=== PATIENT | female | born 2000 | race American Indian/Alaskan Native ===

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

== ENCOUNTER 2019-06-07 17:13 | Inpatient (IN) | payer BC ==
[2019-06-07] MEDS ORDERED: Sodium Chloride 0.9% 10 ML SDV IV PRN (17:18)
[2019-06-07] MEDS ORDERED: Lidocaine 1% 50 ML MDV INJECT PRN (17:18)
[2019-06-07] MEDS ORDERED: Sodium Chloride 0.9% 2.5 ML Syringe FLUSH PRN (17:18)
[2019-06-07] MEDS ORDERED: Methylergonovine 0.2 MG/1 ML Amp IM PRN (17:18)
[2019-06-07] MEDS ORDERED: Misoprostol 200 MCG Tab PO PRN (17:18)
[2019-06-07] MEDS ORDERED: Ondansetron 4 MG/2 ML SDV IVPUSH PRN (17:18)
[2019-06-07] MEDS ORDERED: Carboprost Tromethamine 250 MCG/1 ML Amp IM PRN (17:18)
[2019-06-07] MEDS ORDERED: Nalbuphine 10 MG/1 ML Vial IVPUSH PRN (17:18)
[2019-06-07] MEDS ORDERED: Terbutaline 1 MG/ML SDV SUBCUT PRN (17:18)
[2019-06-07] MEDS ORDERED: Tranexamic Acid 1,000 MG in Sodium Chloride 0.9% 100 ML IV PRN (17:18)
[2019-06-07] MEDS ORDERED: Butorphanol 1 MG/ML SDV IVPUSH PRN (17:18)
[2019-06-07] MEDS ORDERED: Sodium Chloride 0.9% 10 ML Syringe FLUSH PRN (17:18)
[2019-06-07] MEDS ORDERED: Misoprostol 25 MCG (1/4 of 100 MCG) Tab VAG PRN ×3 (17:18→20:44)
[2019-06-07] MEDS ORDERED: Water For Irrigation,Sterile 1,000 ML Container IRR PRN (17:18)
[2019-06-07] MEDS ORDERED: Oxytocin/0.9 % Sodium Chloride 30 UNIT/500 ML BAG IV SCH ×2 (17:30)
[2019-06-07] MEDS: Lactated Ringers 1,000 ML IV SCH (18:31)
[2019-06-08] MEDS ORDERED: fentaNYL 100 MCG/2 ML SDV ONE (09:47)
[2019-06-08] MEDS ORDERED: Ropivacaine HCl/PF 100 ML ONE (09:47)
[2019-06-08] MEDS: Lactated Ringers 1,000 ML IV SCH ×3 (10:05→17:42)
--- NOTE | 2019-06-08 10:09 | PCM.PREANE ---
Preanesthetic Assessment - Anesthesia/Transfusion/Family Hx Anesthesia History: Prior Anesthesia Without Reaction Family History of Anesthesia Reaction: No Transfusion History: No Prior Transfusion(s) - Review of Systems General: No Symptoms Pulmonary: No Symptoms Cardiovascular: No Symptoms Gastrointestinal: No Symptoms Neurological: No Symptoms Other: Reports: None - Physical Assessment Height: 1.52 m Weight: 79.379 kg ASA Class: 1 Mental Status: Alert & Oriented x3 Dentition: Reports: Normal Dentition - Lab Values: Laboratory Last Values WBC 10.04 K/uL (4.0-11.0) 06/07/19 17:47 RBC 3.80 M/uL (4.30-5.90) L 06/07/19 17:47 Hgb 12.2 g/dL (12.0-16.0) 06/07/19 17:47 Hct 34.7 % (36.0-46.0) L 06/07/19 17:47 MCV 91.3 fL (80.0-98.0) 06/07/19 17:47 MCH 32.1 pg (27.0-32.0) H 06/07/19 17:47 MCHC 35.2 g/dL (31.0-37.0) 06/07/19 17:47 RDW Std Deviation 42.1 fl (28.0-62.0) 06/07/19 17:47 RDW Coeff of Migue 13 % (11.0-15.0) 06/07/19 17:47 Plt Count 157 K/uL (150-400) 06/07/19 17:47 MPV 10.80 fL (7.40-12.00) 06/07/19 17:47 Nucleated RBC % 0.0 /100WBC 06/07/19 17:47 Nucleated RBCs # 0 K/uL 06/07/19 17:47 Blood Type O POSITIVE 06/07/19 17:47 Antibody Screen NEGATIVE 06/07/19 17:47 - Allergies Allergies/Adverse Reactions: Allergies Allergy/AdvReac Type Severity Reaction Status Date / Time No Known Allergies Allergy Verified 06/07/19 17:17 - Acknowledgements Anesthesia Type Planned: Epidural Pt an Appropriate Candidate for the Planned Anesthesia: Yes Alternatives and Risks of Anesthesia Discussed w Pt/Guardian: Yes Pt/Guardian Understands and Agrees with Anesthesia Plan: Yes PreAnesthesia Questionnaire - Past Health History Medical/Surgical History: Denies Medical/Surgical History HEENT History: Reports: None Cardiovascular History: Reports: Arrhythmia Respiratory History: Reports: None Gastrointestinal History: Reports: None Genitourinary History: Reports: None 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 Musculoskeletal History: Reports: None Neurological History: Reports: None Psychiatric History: Reports: None Endocrine/Metabolic History: Reports: None Hematologic History: Reports: None Immunologic History: Reports: None Oncologic (Cancer) History: Reports: None Dermatologic History: Reports: None - Infectious Disease History Infectious Disease History: Reports: None - Past Surgical History Head Surgeries/Procedures: Reports: None HEENT Surgical History: Reports: None Cardiovascular Surgical History: Reports: None Respiratory Surgical History: Reports: None GI Surgical History: Reports: None Female Surgical History: Reports: None Endocrine Surgical History: Reports: None Neurological Surgical History: Reports: None Musculoskeletal Surgical History: Reports: Other (See Below) Other Musculoskeletal Surgeries/Procedures:: knee surgery Oncologic Surgical History: Reports: None Dermatological Surgical History: Reports: None - SUBSTANCE USE Smoking Status *Q: Never Smoker Second Hand Smoke Exposure: No Recreational Drug Use History: No - HOME MEDS Home Medications: Home Meds . [No Known Home Meds] 05/17/17 [History] - CURRENT (IN HOUSE) MEDS Current Meds: Current Medications Butorphanol Tartrate (Stadol) 1 mg IVPUSH Q1H PRN PRN Reason: Pain Carboprost Tromethamine (Hemabate Ds) 250 mcg IM ASDIRECTED PRN PRN Reason: Post Hemorrhage Lactated Ringer's (Ringers, Lactated) 1,000 mls @ 150 mls/hr IV ASDIRECTED NURA Last Admin: 06/08/19 10:05 Dose: 999 mls/hr Oxytocin/Sodium Chloride (Oxytocin 30 Unit/500 Ml-Ns) 30 unit in 500 mls @ 500 mls/hr IV TITRATE NURA Oxytocin/Sodium Chloride (Oxytocin 30 Unit/500 Ml-Ns) 30 unit in 500 mls @ 2 mls/hr IV TITRATE NURA; Protocol Last Titration: 06/08/19 08:35 Dose: 10 munits/min, 10 mls/hr Tranexamic Acid 1,000 mg/ (Sodium Chloride) 110 mls @ 660 mls/hr IV ONETIME PRN PRN Reason: Bleeding Lidocaine HCl (Xylocaine 1%) 50 ml INJECT ONETIME PRN PRN Reason: Laceration repair Methylergonovine Maleate (Methergine) 0.2 mg IM ASDIRECTED PRN PRN Reason: Post Hemorrhage Misoprostol (Cytotec) 200 mcg PO ONETIME PRN PRN Reason: Post Hemorrhage Misoprostol (Cytotec) 25 mcg VAG ONETIME PRN PRN Reason: Cervical Ripening Last Admin: 06/07/19 18:16 Dose: 25 mcg Misoprostol (Cytotec) 25 mcg VAG Q4H PRN PRN Reason: Cervical Ripening Nalbuphine HCl (Nubain) 10 mg IVPUSH Q1H PRN PRN Reason: Pain (severe 7-10) Ondansetron HCl (Zofran) 4 mg IVPUSH Q4H PRN PRN Reason: Nausea/Vomiting Sodium Chloride (Saline Flush) 10 ml FLUSH ASDIRECTED PRN PRN Reason: Keep Vein Open Sodium Chloride (Saline Flush) 2.5 ml FLUSH ASDIRECTED PRN PRN Reason: Keep Vein Open Sodium Chloride (Normal Saline) 10 ml IV ASDIRECTED PRN PRN Reason: IV Use Sterile Water (Sterile Water For Irrigation) 1,000 ml IRR ASDIRECTED PRN PRN Reason: delivery Terbutaline Sulfate (Brethine) 0.25 mg SUBCUT ASDIRECTED PRN PRN Reason: Tacysystole Discontinued Medications Fentanyl (Sublimaze) Confirm Administered Dose 100 mcg .ROUTE .STK-MED ONE Stop: 06/08/19 09:48 Ropivacaine (Naropin 0.2%) Confirm Administered Dose 100 mls @ as directed .ROUTE .STK-MED ONE Stop: 06/08/19 09:48 Misoprostol (Cytotec) 25 mcg VAG Q6H PRN PRN Reason: Cervical Ripening
--- NOTE | 2019-06-08 10:13 | PCM.PRNOTE ---
- Free Text/Narrative Note: Anes Note Patient requests epidural fpr L&D. Sitting position. Level L3-L4 midline approach. Sterile technique. Chloraprep scrub to lumbar area. Sterile fenestrated drape applied. Epidural space easily achieved single attempt using CHUCK technique. CHUCK at 4 cm. Cath threaded 5 cm with ease. Secured at 9 cm at skin using sterile clear adhesive dressing. 1000 test 3 cc 1.5% lido with epi negative. 1003 load 10 cc 0.2% ropivicaine with 1 mcg cc fentanyl in slow divided doses. 1007 Pump started same solution at 8 cc hr with 6 cc q 20 min prn bolus. Kaylah well. Time with patient [id number] Turner Francis SEED CLEANING MANAGER
[2019-06-08] MEDS ORDERED: Acetaminophen 500 MG Tab PO ONE (15:56)
[2019-06-08] MEDS ORDERED: ceFAZolin 1 GM in Premix Bag 1 BAG IV ONE (17:08)
[2019-06-08] MEDS ORDERED: Citric Acid/Sodium Citrate Solution 30 ML Cup PO ONE (17:08)
[2019-06-08] MEDS ORDERED: Oxytocin/0.9 % Sodium Chloride 30 UNIT/500 ML BAG IV SCH (17:15)
[2019-06-08] MEDS ORDERED: Octyl 2-Cyanoacrylate 1 Tube ONE (17:37)
[2019-06-08] MEDS ORDERED: Morphine PF 10 MG/10 ML SDV ONE (17:43)
[2019-06-08] MEDS ORDERED: Phenylephrine/Normal Saline 100 MCG/ML 10 ML Syringe ONE (18:10)
[2019-06-08] MEDS ORDERED: Acetaminophen/oxyCODONE 325-5 MG Tab PO PRN ×3 (18:16→18:31)
[2019-06-08] MEDS ORDERED: Nalbuphine 10 MG/1 ML Vial IVPUSH PRN (18:16)
[2019-06-08] MEDS ORDERED: ePHEDrine 50 MG/ML SDV ONE (18:22)
[2019-06-08] MEDS ORDERED: ceFAZolin/Dextrose,Iso-Osmotic 2 GM/50 ML Duplex Bag IV ONE (18:22)
[2019-06-08] MEDS ORDERED: Ondansetron 4 MG/2 ML SDV IVPUSH PRN (18:31)
[2019-06-08] MEDS ORDERED: diphenhydrAMINE 50 MG/ML SDV IVPUSH PRN (18:31)
[2019-06-08] MEDS ORDERED: Lanolin 100% Cream 7 GM Tube TOP PRN (18:31)
[2019-06-08] MEDS ORDERED: Bisacodyl 10 MG Supp RECTAL PRN (18:31)
--- NOTE | 2019-06-08 18:36 | PCM.OPNOTE ---
- General Post-Op/Procedure Note Date of Surgery/Procedure: 06/08/19 Operative Procedure(s): primary low transverse Findings: liveborn male 8/9 weight pending, ROT position. normal pelvis Pre Op Diagnosis: 39 6/7 weeks arrest of descent Post-Op Diagnosis: Same Anesthesia Technique: Epidural Primary Surgeon: Giovana Azevedo Secondary Surgeon: Reinaldo Ness Anesthesia Provider: Jere Fermin Pathology: none Fluid Replacement, Intraop: 1,000 Output, Urine Amount: 110 EBL in mLs: 600 Complications: None Known Condition: Good Free Text/Narrative:: Intake & Output 06/08/19 06/08/19 06/08/19 06:59 14:59 22:59 Output Total 150 Balance -150
[2019-06-08] MEDS ORDERED: Lactated Ringers 1,000 ML IV SCH (18:45)
--- NOTE | 2019-06-08 19:22 | PCM.POSTAN ---
POST ANESTHESIA ASSESSMENT - MENTAL STATUS Mental Status: Alert - VITAL SIGNS Vital Signs: Last Vital Signs Temp 36.8 C 06/08/19 18:46 Pulse 81 06/08/19 19:11 Resp 21 H 06/08/19 19:11 BP 112/71 06/08/19 19:11 Pulse Ox 99 06/08/19 19:11 - RESPIRATORY Respiratory Status: Respiratory Rate WNL - CARDIOVASCULAR CV Status: Pulse Rate WNL - GASTROINTESTINAL GI Status: No Symptoms - POST OP HYDRATION Hydration Status: Adequate & Stable
--- NOTE | 2019-06-08 19:40 | OR ---
SURGEON: Giovana Azevedo M.D. DATE OF PROCEDURE: 06/08/2019 PREOPERATIVE DIAGNOSES: 39 and 6/7th weeks' intrauterine , arrest of descent. POSTOPERATIVE DIAGNOSES: 39 and 6/7th weeks' intrauterine , arrest of descent. PROCEDURE: Primary low-transverse section. ANESTHESIA: Epidural. ESTIMATED BLOOD LOSS: 600 mL. FLUIDS: 1000 mL of crystalloid. URINE OUTPUT: 115 mL. FINDINGS: Liveborn male. score 8 and 9, weighing 3930 g. ROT position. Normal- appearing tubes and ovaries. COMPLICATIONS: None known. DISPOSITION: Stable to Recovery. BRIEF HISTORY: This is a 19-year-old female, G1, P0. She presents at 39 and 6/7th weeks' gestation for induction of labor due to suspected cephalopelvic disproportion and she was offered a primary versus awaiting onset of labor. However, she desires to proceed with induction of labor with attempted trial of labor. She started with cervix 1 cm, 50%, -4 station. She received a dose of Cytotec. By morning, she was 2 cm, 50%, -4 station. Artificial rupture of membranes was performed. IUPC was placed. She progressed to 3 cm by noon. By 4 p.m., she was 4 cm, 80%, but still -4 station. At this point, the patient requested section. I did offer continued labor as there was category 1 heart tones, but she understanding that the head had not descended whatsoever, she does desire to proceed with a primary with risks discussed including bleeding, infection; injury to bowel, bladder, blood vessels or any other organs; risk of thromboembolic event, and risk of anesthesia. Understanding all these risks, she does desire to proceed. DESCRIPTION OF PROCEDURE: With the patient in left tilt position under adequate epidural analgesia, the abdomen was prepped with chlorhexidine and draped in usual fashion for abdominal surgery. SCDs were in place. Funes catheter had been placed and an appropriate time-out was held. She also received 1 g Ancef IV. After documentation of adequate analgesia, the transverse curvilinear incision was made 2 cm cephalad from the pubic symphysis and carried through the subcutaneous tissue to the fascia, which was scored transversely in the midline. The fascial incision was extended laterally using curved Maldonado scissors. Fascia was elevated from the underlying rectus muscle using sharp and blunt dissection. The rectus muscles were in the midline and the peritoneum was grasped with hemostats. The peritoneal cavity was entered using Metzenbaum scissors. A finger was placed into the peritoneal cavity. There was no evidence of any adhesions anteriorly; therefore, the incision was extended using sharp and blunt dissection. The Yovani O retractor was placed. The visceroperitoneum over the lower uterine segment was incised to develop an adequate bladder flap. A transverse curvilinear incision was made over the lower uterine segment and the head was delivered via the uterine incision with fundal pressure. The was in a right occiput transverse position, and the infant was bulb suctioned by nose and mouth and the remainder of the infant's body was delivered without any difficulty. After the cord had ceased to pulsate, it was doubly clamped and cut. The infant was handed to Dr. Monreal the spool carrier in attendance at delivery. The infant was a liveborn male, score 8 and 9, weighing 3930 g. Cord blood was collected for cord ABGs as well as routine cord blood sampling. Pitocin had been initiated after delivery of the infant to assist with uterine contractions. After the placenta was delivered, the uterus was cleaned with a wet laparotomy tape. The uterine incision was closed with a running lock suture of 0 Polysorb followed by an imbricating layer of 0 Polysorb. The posterior cul-de-sac and pericolic gutters were cleaned with a wet laparotomy tape, and the tubes and ovaries were inspected and they appeared normal. The uterine incision was again inspected and was hemostatic. Therefore, the Yovani O retractor was removed, and the incision was again inspected and remained hemostatic. The rectus muscle and peritoneum were loosely approximated in the midline using a running mattress suture of 0 Polysorb. The posterior aspect of the fascia was inspected and areas of bleeding that were noted were cauterized. The fascia was closed with a running suture of 0 Polysorb. Subcutaneous tissue was irrigated. Any areas of bleeding that were noted were cauterized. The skin was closed with a running subcuticular suture of 3-0 Monocryl followed by Dermabond. Final sponge, needle, and instrument counts were reported as correct. There were no noted complications. Mother and baby are in Recovery in good condition. ANÍBAL / GEORGES /[id number]
[2019-06-08] MEDS: Ketorolac 30 MG/ML SDV IVPUSH SCH (21:14)
[2019-06-08] MEDS: Docusate Sodium 100 MG Cap PO SCH (21:15)
[2019-06-09] MEDS: Ketorolac 30 MG/ML SDV IVPUSH SCH ×4 (01:16→20:04)
--- NOTE | 2019-06-09 08:05 | PCM.PNPP ---
- General Info Date of Service: 06/09/19 Functional Status: Reports: Pain Controlled, Tolerating Diet. Denies: Urinating (bunch still in place) - Review of Systems General: Reports: No Symptoms HEENT: Reports: No Symptoms Pulmonary: Reports: No Symptoms Cardiovascular: Reports: No Symptoms Gastrointestinal: Reports: No Symptoms Genitourinary: Reports: No Symptoms Musculoskeletal: Reports: No Symptoms Skin: Reports: No Symptoms Neurological: Reports: No Symptoms Psychiatric: Reports: No Symptoms - Patient Data Vital Signs - Most Recent: Last Vital Signs Temp 36.6 C 06/09/19 04:00 Pulse 88 06/09/19 06:00 Resp 17 06/09/19 06:00 BP 100/54 L 06/09/19 04:00 Pulse Ox 95 06/09/19 06:00 Weight - Most Recent: 79.379 kg I&O - Last 24 Hours: Intake & Output 06/08/19 06/09/19 06/09/19 22:59 06:59 14:59 Intake Total 2700 Output Total 435 850 Balance 2265 -850 Lab Results - Last 24 Hours: Laboratory Results - last 24 hr 06/08/19 06/09/19 Range/Units 18:02 05:23 Hgb 9.5 L (12.0-16.0) g/dL Hct 28.0 L (36.0-46.0) % Cord ABG pH 7.225 (7.18-7.38) Cord ABG Base Excess -7 (-10--2) Cord VBG pH 7.257 (7.25-7.45) Cord VBG Base Excess -8 (-10--2) Med Orders - Current: Current Medications Bisacodyl (Dulcolax) 10 mg RECTAL ONETIME PRN PRN Reason: Constipation Diphenhydramine HCl (Benadryl) 25 mg IVPUSH Q6H PRN PRN Reason: Itching or Nausea Docusate Sodium (Colace) 100 mg PO BID [facility] Last Admin: 06/08/19 21:15 Dose: Not Given Emollient Ointment (Lansinoh Hpa) 0 gm TOP ASDIRECTED PRN PRN Reason: Sore Nipples Lactated Ringer's (Ringers, Lactated) 1,000 mls @ 125 mls/hr IV ASDIRECTED [facility] Last Admin: 06/08/19 22:28 Dose: 125 mls/hr Ibuprofen (Motrin) 800 mg PO Q8H PRN PRN Reason: mild pain or fever Ketorolac Tromethamine (Toradol) 30 mg IVPUSH Q6H [facility] Stop: 06/09/19 19:16 Last Admin: 06/09/19 07:19 Dose: 30 mg Nalbuphine HCl (Nubain) 2.5 mg IVPUSH Q3H PRN PRN Reason: Pruritis Stop: 06/09/19 18:17 Last Admin: 06/08/19 23:16 Dose: 2.5 mg Ondansetron HCl (Zofran) 4 mg IVPUSH Q4H PRN PRN Reason: Nausea/Vomiting Last Admin: 06/08/19 20:15 Dose: 4 mg Oxycodone/Acetaminophen (Percocet 325-5 Mg) 1 tab PO Q4H PRN PRN Reason: Pain (moderate 4-6) Oxycodone/Acetaminophen (Percocet 325-5 Mg) 2 tab PO Q4H PRN PRN Reason: Pain (moderate 4-6) Discontinued Medications Acetaminophen (Tylenol Extra Strength) 1,000 mg PO ONETIME ONE Stop: 06/08/19 15:57 Last Admin: 06/08/19 16:29 Dose: 500 mg Butorphanol Tartrate (Stadol) 1 mg IVPUSH Q1H PRN PRN Reason: Pain Carboprost Tromethamine (Hemabate Ds) 250 mcg IM ASDIRECTED PRN PRN Reason: Post Hemorrhage Cefazolin Sodium/Dextrose (Ancef) Confirm Administered Dose 2 gm IV .STK-MED ONE Stop: 06/08/19 18:23 Citric Acid/Sodium Citrate (Bicitra Solution) 30 ml PO ONETIME ONE Stop: 06/08/19 17:09 Last Admin: 06/08/19 17:41 Dose: 30 ml Ephedrine Sulfate (Ephedrine Sulfate) Confirm Administered Dose 50 mg .ROUTE .STK-MED ONE Stop: 06/08/19 18:23 Fentanyl (Sublimaze) Confirm Administered Dose 100 mcg .ROUTE .STK-MED ONE Stop: 06/08/19 09:48 Last Admin: 06/08/19 23:22 Dose: Not Given Lactated Ringer's (Ringers, Lactated) 1,000 mls @ 150 mls/hr IV ASDIRECTED [facility] Last Admin: 06/08/19 17:42 Dose: 999 mls/hr Oxytocin/Sodium Chloride (Oxytocin 30 Unit/500 Ml-Ns) 30 unit in 500 mls @ 500 mls/hr IV TITRATE N[facility] Oxytocin/Sodium Chloride (Oxytocin 30 Unit/500 Ml-Ns) 30 unit in 500 mls @ 2 mls/hr IV TITRATE NUR[facility]; Protocol Last Titration: 06/08/19 13:50 Dose: 14 munits/min, 14 mls/hr Tranexamic Acid 1,000 mg/ (Sodium Chloride) 110 mls @ 660 mls/hr IV ONETIME PRN PRN Reason: Bleeding Ropivacaine (Naropin 0.2%) Confirm Administered Dose 100 mls @ as directed .ROUTE .[employer]-MED ONE Stop: 06/08/19 09:48 Last Admin: 06/08/19 23:22 Dose: Not Given Cefazolin Sodium/Dextrose 1 gm (/ Premix) 50 mls @ 100 mls/hr IV ONETIME ONE Stop: 06/08/19 17:37 Last Admin: 06/08/19 23:22 Dose: Not Given Oxytocin/Sodium Chloride (Oxytocin 30 Unit/500 Ml-Ns) 30 unit in 500 mls @ 250 mls/hr IV TITRATE [facility] Lidocaine HCl (Xylocaine 1%) 50 ml INJECT ONETIME PRN PRN Reason: Laceration repair Methylergonovine Maleate (Methergine) 0.2 mg IM ASDIRECTED PRN PRN Reason: Post Hemorrhage Misoprostol (Cytotec) 200 mcg PO ONETIME PRN PRN Reason: Post Hemorrhage Misoprostol (Cytotec) 25 mcg VAG ONETIME PRN PRN Reason: Cervical Ripening Last Admin: 06/07/19 18:16 Dose: 25 mcg Misoprostol (Cytotec) 25 mcg VAG Q6H PRN PRN Reason: Cervical Ripening Misoprostol (Cytotec) 25 mcg VAG Q4H PRN PRN Reason: Cervical Ripening Morphine Sulfate (Duramorph Pf) Confirm Administered Dose 10 mg .ROUTE .STK-MED ONE Stop: 06/08/19 17:44 Nalbuphine HCl (Nubain) 10 mg IVPUSH Q1H PRN PRN Reason: Pain (severe 7-10) Octyl Cyanoacrylate (Dermabond Advance) Confirm Administered Dose 1 applic .ROUTE .[employer]-MED ONE Stop: 06/08/19 17:38 Last Admin: 06/08/19 23:22 Dose: Not Given Ondansetron HCl (Zofran) 4 mg IVPUSH Q4H PRN PRN Reason: Nausea/Vomiting Oxycodone/Acetaminophen (Percocet 325-5 Mg) 1 tab PO ONETIME PRN PRN Reason: Pain (moderate 4-6) Phenylephrine HCl (Phenylephrine In Ns 100 Mcg/Ml) Confirm Administered Dose 5 mg .ROUTE .STK-MED ONE Stop: 06/08/19 18:11 Sodium Chloride (Saline Flush) 10 ml FLUSH ASDIRECTED PRN PRN Reason: Keep Vein Open Sodium Chloride (Saline Flush) 2.5 ml FLUSH ASDIRECTED PRN PRN Reason: Keep Vein Open Sodium Chloride (Normal Saline) 10 ml IV ASDIRECTED PRN PRN Reason: IV Use Sterile Water (Sterile Water For Irrigation) 1,000 ml IRR ASDIRECTED PRN PRN Reason: delivery Terbutaline Sulfate (Brethine) 0.25 mg SUBCUT ASDIRECTED PRN PRN Reason: Tacysystole - Interaction Disposition, : in Room with Family Infant Interaction: Holding Infant Feeding: Breastfed ; Nursed Well Support Person: - Recovery Exam Fundal Tone: Firm Fundal Level: 2 Fingerbreadths Below Umbilicus Fundal Placement: Midline Lochia Amount: Small Lochia Color: Rubra/Red Perineum Description: Intact, Minimal Bruising/Swelling Episiotomy/Laceration: None Bladder Status: Indwelling Catheter in Place Urinary Elimination: Indwelling Catheter - Exam General: Alert, Oriented HEENT: Pupils Equal Neck: Supple Lungs: Clear to Auscultation, Normal Respiratory Effort Cardiovascular: Regular Rate, Regular Rhythm GI/Abdominal Exam: Normal Bowel Sounds, Soft, Non-Tender, No Distention Extremities: Normal Inspection, Normal Range of Motion, Non-Tender, No Pedal Edema Skin: Warm, Dry, Intact Wound/Incisions: Dressing Dry and Intact Neurological: No New Focal Deficit Psy/Mental Status: Alert, Normal Affect, Normal Mood - Problem List & Annotations (1) Cephalopelvic disproportion due to inlet contraction of pelvis SNOMED Code(s): 129593201 Code(s): O33.2 - MATERNAL CARE FOR DISPROPRTN DUE TO INLET CONTRCTN OF PELVIS Status: Acute Current Visit: Yes (2) delivery delivered SNOMED Code(s): 646442343 Code(s): O82 - ENCOUNTER FOR DELIVERY WITHOUT INDICATION Status: Acute Current Visit: Yes - Problem List Review Problem List Initiated/Reviewed/Updated: Yes - My Orders Last 24 Hours: My Active Orders 06/08/19 17:08 Procedure Site Prep Instruct [RC] ASDIRECTED Verify Patient Consent Obtain [RC] ASDIRECTED 06/08/19 18:31 Patient Status [ADT] Routine Ambulate [RC] PER UNIT ROUTINE Communication Order [RC] PER UNIT ROUTINE Communication Order [RC] PER UNIT ROUTINE Communication Order [RC] Per Unit Routine May Shower [RC] ASDIRECTED RT Incentive Spirometry [RC] Q2HWA Vital Signs [RC] PER UNIT ROUTINE Acetaminophen/oxyCODONE [Percocet 325-5 MG] 1 tab PO Q4H PRN Acetaminophen/oxyCODONE [Percocet 325-5 MG] 2 tab PO Q4H PRN Bisacodyl [Dulcolax] 10 mg RECTAL ONETIME PRN Lanolin [Lansinoh HPA] See Dose Instructions TOP ASDIRECTED PRN Ondansetron [Zofran] 4 mg IVPUSH Q4H PRN diphenhydrAMINE [Benadryl] 25 mg IVPUSH Q6H PRN Abdominal Binder [OM.PC] Urgent Assess Lochia [WOMSER] Per Unit Routine Assess Uterine Involution [WOMSER] Per Unit Routine Breast Pump [WOMSER] Per Unit Routine Peripheral IV Discontinue [OM.PC] Routine Sequential Compression Device [OM.PC] Per Unit Routine Resuscitation Status Routine 06/08/19 18:32 Antiembolic Devices [RC] PER UNIT ROUTINE Intake and Output [RC] Q8H Notify Provider Intake and Out [RC] ASDIRECTED Notify Provider Vital Signs [RC] ASDIRECTED 06/08/19 18:45 Lactated Ringers [Ringers, Lactated] 1,000 ml IV ASDIRECTED 06/08/19 19:15 Ketorolac [Toradol] 30 mg IVPUSH Q6H 06/08/19 21:00 Docusate Sodium [Colace] 100 mg PO BID 06/09/19 Breakfast Regular Diet [DIET] 06/10/19 01:30 Ibuprofen [Motrin] 800 mg PO Q8H PRN - Assessment Assessment:: POD#1 after primary low transverse for arrest of descent, CPD in labor , Stable minimal lochia, denies pain or nausea - Plan Plan:: May have catheter out today, ambulate, remove dressing, may shower
[2019-06-09] MEDS: Docusate Sodium 100 MG Cap PO SCH ×2 (08:55→20:06)
--- NOTE | 2019-06-09 09:02 | PCM48HPAN ---
Post Anesthesia Note - EVALUATION WITHIN 48HRS OF ANESTHETIC Vital Signs in Normal Range: Yes Patient Participated in Evaluation: Yes Respiratory Function Stable: Yes Airway Patent: Yes Cardiovascular Function Stable: Yes Hydration Status Stable: Yes Pain Control Satisfactory: Yes Nausea and Vomiting Control Satisfactory: Yes Mental Status Recovered: Yes Vital Signs: Last Vital Signs Temp 36.8 C 06/09/19 08:00 Pulse 88 06/09/19 08:00 Resp 20 06/09/19 08:00 BP 110/63 06/09/19 08:00 Pulse Ox 99 06/09/19 08:00
[2019-06-10] MEDS ORDERED: Ibuprofen 800 MG Tab PO PRN (01:30)
[2019-06-10 07:20] VITALS: BP 109/61; PULSE 71
--- NOTE | 2019-06-10 08:18 | PCM.PNPP ---
- General Info Date of Service: 06/10/19 Functional Status: Reports: Pain Controlled, Tolerating Diet, Ambulating, Urinating - Review of Systems General: Reports: No Symptoms HEENT: Reports: No Symptoms Pulmonary: Reports: No Symptoms Cardiovascular: Reports: No Symptoms Gastrointestinal: Reports: No Symptoms Genitourinary: Reports: No Symptoms Musculoskeletal: Reports: No Symptoms Skin: Reports: No Symptoms Neurological: Reports: No Symptoms Psychiatric: Reports: No Symptoms - General Info Date of Service: 06/10/19 - Patient Data Vital Signs - Most Recent: Last Vital Signs Temp 36.6 C 06/10/19 07:19 Pulse 71 06/10/19 07:19 Resp 16 06/10/19 07:19 BP 109/61 06/10/19 07:19 Pulse Ox 97 06/10/19 07:19 Weight - Most Recent: 79.379 kg Med Orders - Current: Current Medications Bisacodyl (Dulcolax) 10 mg RECTAL ONETIME PRN PRN Reason: Constipation Diphenhydramine HCl (Benadryl) 25 mg IVPUSH Q6H PRN PRN Reason: Itching or Nausea Docusate Sodium (Colace) 100 mg PO BID [facility] Last Admin: 06/09/19 20:06 Dose: 100 mg Emollient Ointment (Lansinoh Hpa) 0 gm TOP ASDIRECTED PRN PRN Reason: Sore Nipples Lactated Ringer's (Ringers, Lactated) 1,000 mls @ 125 mls/hr IV ASDIRECTED [facility] Last Admin: 06/08/19 22:28 Dose: 125 mls/hr Ibuprofen (Motrin) 800 mg PO Q8H PRN PRN Reason: mild pain or fever Last Admin: 06/10/19 02:39 Dose: 800 mg Ondansetron HCl (Zofran) 4 mg IVPUSH Q4H PRN PRN Reason: Nausea/Vomiting Last Admin: 06/08/19 20:15 Dose: 4 mg Oxycodone/Acetaminophen (Percocet 325-5 Mg) 1 tab PO Q4H PRN PRN Reason: Pain (moderate 4-6) Oxycodone/Acetaminophen (Percocet 325-5 Mg) 2 tab PO Q4H PRN PRN Reason: Pain (moderate 4-6) Discontinued Medications Acetaminophen (Tylenol Extra Strength) 1,000 mg PO ONETIME ONE Stop: 06/08/19 15:57 Last Admin: 06/08/19 16:29 Dose: 500 mg Butorphanol Tartrate (Stadol) 1 mg IVPUSH Q1H PRN PRN Reason: Pain Carboprost Tromethamine (Hemabate Ds) 250 mcg IM ASDIRECTED PRN PRN Reason: Post Hemorrhage Cefazolin Sodium/Dextrose (Ancef) Confirm Administered Dose 2 gm IV .STK-MED ONE Stop: 06/08/19 18:23 Citric Acid/Sodium Citrate (Bicitra Solution) 30 ml PO ONETIME ONE Stop: 06/08/19 17:09 Last Admin: 06/08/19 17:41 Dose: 30 ml Ephedrine Sulfate (Ephedrine Sulfate) Confirm Administered Dose 50 mg .ROUTE .STK-MED ONE Stop: 06/08/19 18:23 Fentanyl (Sublimaze) Confirm Administered Dose 100 mcg .ROUTE .STK-MED ONE Stop: 06/08/19 09:48 Last Admin: 06/08/19 23:22 Dose: Not Given Lactated Ringer's (Ringers, Lactated) 1,000 mls @ 150 mls/hr IV ASDIRECTED [facility] Last Admin: 06/08/19 17:42 Dose: 999 mls/hr Oxytocin/Sodium Chloride (Oxytocin 30 Unit/500 Ml-Ns) 30 unit in 500 mls @ 500 mls/hr IV TITRATE NURA Oxytocin/Sodium Chloride (Oxytocin 30 Unit/500 Ml-Ns) 30 unit in 500 mls @ 2 mls/hr IV TITRATE NUR[facility]; Protocol Last Titration: 06/08/19 13:50 Dose: 14 munits/min, 14 mls/hr Tranexamic Acid 1,000 mg/ (Sodium Chloride) 110 mls @ 660 mls/hr IV ONETIME PRN PRN Reason: Bleeding Ropivacaine (Naropin 0.2%) Confirm Administered Dose 100 mls @ as directed .ROUTE .STK-MED ONE Stop: 06/08/19 09:48 Last Admin: 06/08/19 23:22 Dose: Not Given Cefazolin Sodium/Dextrose 1 gm (/ Premix) 50 mls @ 100 mls/hr IV ONETIME ONE Stop: 06/08/19 17:37 Last Admin: 06/08/19 23:22 Dose: Not Given Oxytocin/Sodium Chloride (Oxytocin 30 Unit/500 Ml-Ns) 30 unit in 500 mls @ 250 mls/hr IV TITRATE NUR[facility] Ketorolac Tromethamine (Toradol) 30 mg IVPUSH Q6H [facility] Stop: 06/09/19 19:16 Last Admin: 06/09/19 20:04 Dose: 30 mg Lidocaine HCl (Xylocaine 1%) 50 ml INJECT ONETIME PRN PRN Reason: Laceration repair Methylergonovine Maleate (Methergine) 0.2 mg IM ASDIRECTED PRN PRN Reason: Post Hemorrhage Misoprostol (Cytotec) 200 mcg PO ONETIME PRN PRN Reason: Post Hemorrhage Misoprostol (Cytotec) 25 mcg VAG ONETIME PRN PRN Reason: Cervical Ripening Last Admin: 06/07/19 18:16 Dose: 25 mcg Misoprostol (Cytotec) 25 mcg VAG Q6H PRN PRN Reason: Cervical Ripening Misoprostol (Cytotec) 25 mcg VAG Q4H PRN PRN Reason: Cervical Ripening Morphine Sulfate (Duramorph Pf) Confirm Administered Dose 10 mg .ROUTE .STK-MED ONE Stop: 06/08/19 17:44 Nalbuphine HCl (Nubain) 10 mg IVPUSH Q1H PRN PRN Reason: Pain (severe 7-10) Nalbuphine HCl (Nubain) 2.5 mg IVPUSH Q3H PRN PRN Reason: Pruritis Stop: 06/09/19 18:17 Last Admin: 06/08/19 23:16 Dose: 2.5 mg Octyl Cyanoacrylate (Dermabond Advance) Confirm Administered Dose 1 applic .ROUTE .STK-MED ONE Stop: 06/08/19 17:38 Last Admin: 06/08/19 23:22 Dose: Not Given Ondansetron HCl (Zofran) 4 mg IVPUSH Q4H PRN PRN Reason: Nausea/Vomiting Oxycodone/Acetaminophen (Percocet 325-5 Mg) 1 tab PO ONETIME PRN PRN Reason: Pain (moderate 4-6) Phenylephrine HCl (Phenylephrine In Ns 100 Mcg/Ml) Confirm Administered Dose 5 mg .ROUTE .STK-MED ONE Stop: 06/08/19 18:11 Sodium Chloride (Saline Flush) 10 ml FLUSH ASDIRECTED PRN PRN Reason: Keep Vein Open Sodium Chloride (Saline Flush) 2.5 ml FLUSH ASDIRECTED PRN PRN Reason: Keep Vein Open Sodium Chloride (Normal Saline) 10 ml IV ASDIRECTED PRN PRN Reason: IV Use Sterile Water (Sterile Water For Irrigation) 1,000 ml IRR ASDIRECTED PRN PRN Reason: delivery Terbutaline Sulfate (Brethine) 0.25 mg SUBCUT ASDIRECTED PRN PRN Reason: Tacysystole - Interaction Disposition, : [place] in Room with Family Infant Interaction: Holding Feeding: Breastfed Infant; Nursed Well Support Person: - Recovery Exam Fundal Tone: Firm Fundal Level: At Umbilicus Fundal Placement: Midline Lochia Amount: Scant Lochia Color: Rubra/Red Perineum Description: Intact, Minimal Bruising/Swelling Episiotomy/Laceration: None Bladder Status: Voiding Urinary Elimination: Indwelling Catheter - Exam General: Alert, Oriented HEENT: Pupils Equal Neck: Supple Lungs: Clear to Auscultation, Normal Respiratory Effort Cardiovascular: Regular Rate, Regular Rhythm GI/Abdominal Exam: Normal Bowel Sounds, Soft, Non-Tender, No Distention Extremities: Normal Inspection, Normal Range of Motion, Non-Tender. No: No Pedal Edema (1+ bilateral) Skin: Warm, Dry, Intact Wound/Incisions: Healing Well Neurological: No New Focal Deficit Psy/Mental Status: Alert, Normal Affect, Normal Mood - Problem List & Annotations (1) Cephalopelvic disproportion due to inlet contraction of pelvis SNOMED Code(s): 989028931 Code(s): O33.2 - MATERNAL CARE FOR DISPROPRTN DUE TO INLET CONTRCTN OF PELVIS Status: Acute Current Visit: Yes (2) delivery delivered SNOMED Code(s): 304145688 Code(s): O82 - ENCOUNTER FOR DELIVERY WITHOUT INDICATION Status: Acute Current Visit: Yes - Problem List Review Problem List Initiated/Reviewed/Updated: Yes - My Orders Last 24 Hours: My Active Orders 06/10/19 01:30 Ibuprofen [Motrin] 800 mg PO Q8H PRN - Assessment Assessment:: POD#2 after primary low transverse for arrest of descent, CPD in labor , pain well controlled on oral pain medications, vital stable, would like to go home. - Plan Plan:: Dismiss to home, discharge instructions reviewed.
[2019-06-10] MEDS: Docusate Sodium 100 MG Cap PO SCH (10:09)
== END 2019-06-10 12:55 | disposition home or self-care (01) | DRG 540 ==
LOC: MW.OBCHECK 17:13 → MW.OB 17:19 → OBSVTOIN 06-08 18:00 → MW.OB 06-08 20:30
PROVIDERS: ADMIT Obstetrics & Gynecology; ATTEND Obstetrics & Gynecology
PROC: 10D00Z1 Extraction of Products of Conception, Low, Open Approach (ICD-10-PCS; principal; 2019-06-08)
PROC: 3E0R3BZ Introduction of Anesthetic Agent into Spinal Canal, Percutaneous Approach (ICD-10-PCS; 2019-06-08)
PROC: 00HU33Z Insertion of Infusion Device into Spinal Canal, Percutaneous Approach (ICD-10-PCS; 2019-06-08)
PROC: 4A1HXCZ Monitoring of Products of Conception, Cardiac Rate, External Approach (ICD-10-PCS; 2019-06-08)
PROC: 10H07YZ Insertion of Other Device into Products of Conception, Via Natural or Artificial Opening (ICD-10-PCS; 2019-06-08)
DX: O33.2 Maternal care for disproportion due to inlet contraction of pelvis (principal); O62.1 Secondary uterine inertia; Z3A.39 39 weeks gestation of pregnancy; Z37.0 Single live birth
CPT/HCPCS: 36415; 51702; 82803; 85014; 85018; 85027; 86850; 86900; 86901; A9270-GY; J0690; J1885; J2270; J2300; J2370; J2405; J2590; J2795; J3010; J7120

== ENCOUNTER 2019-10-11 23:10 | Emergency (ER) | payer BC, OTHER ==
[2019-10-11 23:33] VITALS: BP 106/68; PULSE 92
== END 2019-10-12 00:10 | disposition left against medical advice (07) ==
LOC: MW.ED 23:10
DX: Z53.21 Procedure and treatment not carried out due to patient leaving prior to being seen by health care provider (principal)

== ENCOUNTER 2020-07-30 08:26 | Emergency (ER) | payer BC ==
--- NOTE | 2020-07-30 08:32 | EDM.PDOC ---
ED HPI GENERAL MEDICAL PROBLEM - General Stated Complaint: CRAMPING Time Seen by Provider: 07/30/20 08:28 Source of Information: Reports: Patient History Limitations: Reports: No Limitations - History of Present Illness INITIAL COMMENTS - FREE TEXT/NARRATIVE: 20-year-old female presents for right lower abdominal/pelvic cramping pain. Pain started this morning. It is worse with movement, and with urination and bowel movements. No associated burning sensation with urination. Last menstrual period was roughly 3 weeks ago. Denies vaginal discharge. Notes nausea without vomiting. History of , no other abdominal surgeries. No fevers, chest pain, shortness of breath. right ovary Pain Score (Numeric/FACES): 5 - Related Data Allergies Allergy/AdvReac Type Severity Reaction Status Date / Time No Known Allergies Allergy Verified 10/11/19 23:30 Home Meds: Home Meds Acetaminophen/oxyCODONE [Percocet 325-5 MG] 1 tab PO Q4H PRN #20 tablet 06/09/19 [Rx] Ibuprofen [Motrin] 800 mg PO Q8H PRN #20 tablet 06/09/19 [Rx] Ibuprofen [Motrin] 600 mg PO Q6H PRN #28 tab 07/30/20 [Rx] oxyCODONE HCl/Acetaminophen [Percocet 5-325 mg Tablet] 1 each PO Q4H PRN #18 tablet 07/30/20 [Rx] Past Medical History - Past Health History Medical/Surgical History: Denies Medical/Surgical History HEENT History: Reports: None Cardiovascular History: Reports: None Respiratory History: Reports: None Gastrointestinal History: Reports: None Genitourinary History: Reports: None ASSISTANT TEACHER History: Reports: None Musculoskeletal History: Reports: None Neurological History: Reports: None Psychiatric History: Reports: None Endocrine/Metabolic History: Reports: None 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 Hematologic History: Reports: None Immunologic History: Reports: None Oncologic (Cancer) History: Reports: None Dermatologic History: Reports: None - Infectious Disease History Infectious Disease History: Reports: None - Past Surgical History Head Surgeries/Procedures: Reports: None HEENT Surgical History: Reports: None Cardiovascular Surgical History: Reports: None Respiratory Surgical History: Reports: None GI Surgical History: Reports: None Female Surgical History: Reports: Section Endocrine Surgical History: Reports: None Neurological Surgical History: Reports: None Musculoskeletal Surgical History: Reports: Other (See Below) Other Musculoskeletal Surgeries/Procedures:: knee surgery Oncologic Surgical History: Reports: None Dermatological Surgical History: Reports: None Social & Family History - Family History Family Medical History: Noncontributory - Caffeine Use Caffeine Use: Reports: Coffee ED ROS GENERAL - Review of Systems Review Of Systems: Comprehensive ROS is negative, except as noted in HPI. ED EXAM, GENERAL - Physical Exam Exam: See Below Exam Limited By: No Limitations General Appearance: Alert, WD/WN, No Apparent Distress Throat/Mouth: Normal Voice, No Airway Compromise Head: Atraumatic, Normocephalic Neck: Normal Inspection Respiratory/Chest: No Respiratory Distress, No Accessory Muscle Use Cardiovascular: Normal Peripheral Pulses GI/Abdominal: Soft, Other (Subjective tenderness to palpation of right lower quadrant abdomen without guarding or rebound) Extremities: Normal Inspection Neurological: Alert Psychiatric: Normal Affect, Normal Mood Skin Exam: Warm, Dry, Intact, Normal Color Course - Vital Signs Last Recorded V/S: Last Vital Signs Temp 97.1 F 07/30/20 08:39 Pulse 102 H 07/30/20 08:39 Resp 16 07/30/20 08:39 BP 107/64 07/30/20 08:39 Pulse Ox 98 07/30/20 08:39 - Orders/Labs/Meds Orders: Active Orders 24 hr Category Date Time Status Sodium Chloride 0.9% [Saline Flush] Med 07/30/20 08:42 Active 10 ml FLUSH ASDIRECTED PRN Sodium Chloride 0.9% [Saline Flush] Med 07/30/20 08:42 Active 2.5 ml FLUSH ASDIRECTED PRN Saline Lock Insert [OM.PC] Stat Oth 07/30/20 08:42 Ordered Medication Orders Sodium Chloride (Saline Flush) 10 ml FLUSH ASDIRECTED PRN PRN Reason: Keep Vein Open Last Admin: 07/30/20 09:07 Dose: 10 ml Documented by: DEEPA Sodium Chloride (Saline Flush) 2.5 ml FLUSH ASDIRECTED PRN PRN Reason: Keep Vein Open Last Admin: 07/30/20 09:07 Dose: 2.5 ml Documented by: DEEPA Labs: Laboratory Tests 07/30/20 07/30/20 07/30/20 Range/Units 08:55 08:55 10:20 WBC 6.37 (4.0-11.0) K/uL RBC 4.49 (4.30-5.90) M/uL Hgb 13.6 (12.0-16.0) g/dL Hct 41.0 (36.0-46.0) % MCV 91.3 (80.0-98.0) fL MCH 30.3 (27.0-32.0) pg MCHC 33.2 (31.0-37.0) g/dL RDW Std Deviation 42.2 (28.0-62.0) fl RDW Coeff of Migue 13 (11.0-15.0) % Plt Count 199 (150-400) K/uL MPV 9.80 (7.40-12.00) fL Neut % (Auto) 70.3 (48.0-80.0) % Lymph % (Auto) 19.2 (16.0-40.0) % Osborne % (Auto) 7.2 (0.0-15.0) % Eos % (Auto) 2.7 (0.0-7.0) % Baso % (Auto) 0.6 (0.0-1.5) % Neut # (Auto) 4.5 (1.4-5.7) K/uL Lymph # (Auto) 1.2 (0.6-2.4) K/uL Osborne # (Auto) 0.5 (0.0-0.8) K/uL Eos # (Auto) 0.2 (0.0-0.7) K/uL Baso # (Auto) 0.0 (0.0-0.1) K/uL Nucleated RBC % 0.0 /100WBC Nucleated RBCs # 0 K/uL Sodium 141 (136-145) mmol/L Potassium 4.1 (3.5-5.1) mmol/L Chloride 104 (98-107) mmol/L Carbon Dioxide 26.1 (21.0-32.0) mmol/L BUN 11 (7.0-18.0) mg/dL Creatinine 0.7 (0.6-1.0) mg/dL Est Cr Clr Drug Dosing 91.32 mL/min Estimated GFR (MDRD) > 60.0 ml/min Glucose 90 (74-106) mg/dL Calcium 8.5 (8.5-10.1) mg/dL Total Bilirubin 0.9 (0.2-1.0) mg/dL AST 20 (15-37) IU/L ALT 21 (14-63) IU/L Alkaline Phosphatase 80 (46-116) U/L Total Protein 6.7 (6.4-8.2) g/dL Albumin 4.0 (3.4-5.0) g/dL Globulin 2.7 (2.6-4.0) g/dL Albumin/Globulin Ratio 1.5 (0.9-1.6) Urine HCG, Qual NEGATIVE (NEGATIVE) Meds: Medications Generic Name Dose Route Start Last Admin Trade Name Freq PRN Reason Stop Dose Admin Sodium Chloride 10 ml 07/30/20 08:42 07/30/20 09:07 Saline Flush FLUSH 10 ml ASDIRECTED PRN Administration Keep Vein Open Sodium Chloride 2.5 ml 07/30/20 08:42 07/30/20 09:07 Saline Flush FLUSH 2.5 ml ASDIRECTED PRN Administration Keep Vein Open Discontinued Medications Generic Name Dose Route Start Last Admin Trade Name Freq PRN Reason Stop Dose Admin Sodium Chloride 1,000 mls @ 999 mls/hr 07/30/20 08:42 07/30/20 09:01 Normal Saline IV 07/30/20 09:42 999 mls/hr .Bolus ONE Administration Ketorolac Tromethamine 15 mg 07/30/20 08:42 07/30/20 09:02 Toradol IVPUSH 07/30/20 08:43 15 mg ONETIME ONE Administration Ondansetron HCl 4 mg 07/30/20 08:42 07/30/20 09:03 Zofran IVPUSH 07/30/20 08:43 4 mg ONETIME ONE Administration - Re-Assessments/Exams Free Text/Narrative Re-Assessment/Exam: 07/30/20 08:45 Patient presents with right lower quadrant abdominal/suprapubic pain. Will get labs, UA, urine test, pelvic ultrasound to rule out ovarian pathology. Depending on labs, reassessment, ultrasound results we will consider getting CT scan of abdomen and pelvis to rule out appendicitis versus renal stone. 07/30/20 10:30 Ultrasound imaging is remarkable for a right-sided ovarian cyst likely ruptured. She does have a small amount of pelvic free fluid. This would seem to explain the patient's pain. Her hemoglobin is stable, she is nontachycardic and remains normotensive. Low suspicion of actively hemorrhaging cyst. We still do not have a test, urine sample has been given and test is pending. As long as patient remains hemodynamically stable, and testing is negative, anticipate she will be able to be discharged with pain medication and ASSISTANT TEACHER follow-up. Patient does have an ASSISTANT TEACHER that she follows up with regularly and she is able to get an appointment with her sometime this week. She notes that pain is improved after Toradol IV 07/30/20 11:12 Urine is negative, UA without evidence of infection. Will discharge with pain medication and ASSISTANT TEACHER follow-up. Departure - Departure Time of Disposition: 11:12 Disposition: Home, Self-Care 01 Condition: Good Clinical Impression: Ovarian cyst Qualifiers: Laterality: right Qualified Code(s): N83.201 - Unspecified ovarian cyst, right side - Discharge Information Prescriptions: Ibuprofen [Motrin] 600 mg PO Q6H PRN #28 tab PRN Reason: Pain oxyCODONE HCl/Acetaminophen [Percocet 5-325 mg Tablet] 1 each PO Q4H PRN #18 tablet PRN Reason: Pain Instructions: Ovarian Cyst, [id number] Referrals: Giovana Azevedo MD [Primary Care Provider] - Additional Instructions: The following information is given to patients seen in the emergency department who are being discharged to home. This information is to outline your options for follow-up care. We provide all patients seen in our emergency department with a follow-up referral. The need for follow-up, as well as the timing and circumstances, are variable depending upon the specifics of your emergency department visit. If you don't have a primary care physician on staff, we will provide you with a referral. We always advise you to contact your personal physician following an emergency department visit to inform them of the circumstance of the visit and for follow-up with them and/or the need for any referrals to a consulting specialist. The emergency department will also refer you to a specialist when appropriate. This referral assures that you have the opportunity for follow-up care with a specialist. All of these measure are taken in an effort to provide you with optimal care, which includes your follow-up. Under all circumstances we always encourage you to contact your private physician who remains a resource for coordinating your care. When calling for follow-up care, please make the office aware that this follow-up is from your recent emergency room visit. If for any reason you are refused follow-up, please contact the [facility] Emergency Department at and asked to speak to the emergency department charge nurse. Please follow up with your primary care physician. If you do not have a primary care physician, see below: [facility] [address] [place] [id number] My [facility] [address] [place] [address] Sepsis Event Note (ED) - Focused Exam Vital Signs: Vital Signs Temp Pulse Resp BP Pulse Ox 07/30/20 08:39 97.1 F 102 H 16 107/64 98 - My Orders Last 24 Hours: My Active Orders 07/30/20 08:42 Sodium Chloride 0.9% [Saline Flush] 10 ml FLUSH ASDIRECTED PRN Sodium Chloride 0.9% [Saline Flush] 2.5 ml FLUSH ASDIRECTED PRN Saline Lock Insert [OM.PC] Stat - Assessment/Plan Last 24 Hours: My Active Orders 07/30/20 08:42 Sodium Chloride 0.9% [Saline Flush] 10 ml FLUSH ASDIRECTED PRN Sodium Chloride 0.9% [Saline Flush] 2.5 ml FLUSH ASDIRECTED PRN Saline Lock Insert [OM.PC] Stat
[2020-07-30] MEDS ORDERED: Sodium Chloride 0.9% 2.5 ML Syringe FLUSH PRN (08:42)
[2020-07-30] MEDS ORDERED: Ondansetron 4 MG/2 ML SDV IVPUSH ONE (08:42)
[2020-07-30] MEDS ORDERED: Ketorolac 15 MG/ML SDV IVPUSH ONE (08:42)
[2020-07-30] MEDS ORDERED: Sodium Chloride 0.9% 1,000 ML IV ONE (08:42)
[2020-07-30] MEDS ORDERED: Sodium Chloride 0.9% 10 ML Syringe FLUSH PRN (08:42)
[2020-07-30 08:43] VITALS: BP 107/64; PULSE 102
[2020-07-30 09:26] LABS: BLOOD UREA NITROGEN,BUN 11 mg/dL (7.0-18.0); CARBON DIOXIDE,CO2 26.1 mmol/L (21.0-32.0); CHLORIDE,CL 104 mmol/L (98-107); GLUCOSE RANDOM 90 mg/dL (74-106); POTASSIUM,K 4.1 mmol/L (3.5-5.1); SODIUM,NA 141 mmol/L (136-145)
--- NOTE | 2020-07-30 10:18 | US ---
Indication: Right-sided pain for 2 days Technique: Sonography of the pelvis was performed. The study was performed transvaginally. Doppler was also performed to assess the ovaries. Comparison: There are no prior studies for comparison Findings: The uterus is normal in size and configuration measuring 9.3 x 4.3 x 4.9 centimeters. Myometrial echotexture is normal. The endometrial canal is 1.0 centimeters which is within normal limits. The ovaries are normal in size. The right ovary measures 4.6 x 4.2 x 1.7 centimeters and the left ovary measures 1.9 x 2.5 x 2.9 centimeters. There are follicles in both ovaries. There is an irregular complex cystic structure in the right ovary which is probably functional. This measures 2 centimeters in greatest dimension. Doppler of both ovaries appears normal without evidence of torsion. There is free fluid in the pelvis and both adnexa above that generally seen physiologically. It is possible that the combined findings represent rupture of a hemorrhagic cyst in the right ovary. This assumes that the patient is not a hCG positive in which case ectopic would be within the differential. Impression: 1. The uterus and endometrium appear normal. 2. The left ovary is unremarkable 3. The right ovary contains a somewhat irregular complex cystic area measuring 2 centimeters which is probably functional and likely a hemorrhagic cyst. There is moderate free fluid in the pelvis above the chin we seen physiologically. 4. There is no evidence of torsion on either side. 5. The most likely diagnosis is recent rupture of the right-sided ovarian cyst. Please review the comment. Dictated by Emanuel Thompson MD @ Jul 30 2020 10:11AM Signed by Dr. Emanuel Thompson @ Jul 30 2020 10:15AM
== END 2020-07-30 11:25 | disposition home or self-care (01) ==
LOC: MW.ED 08:26
DX: N83.201 Unspecified ovarian cyst, right side (principal)
CPT/HCPCS: 36415; 76856; 80053; 81001; 81025; 85025; 96374; 96375; 99284; J1885; J2405; J7030; 99283

== ENCOUNTER 2021-11-19 09:45 | Inpatient (IN) | payer BC, OTHER ==
[2021-11-19] MEDS: Lactated Ringers 1,000 ML IV SCH ×5 (10:30→23:46)
[2021-11-19] MEDS ORDERED: Citric Acid/Sodium Citrate Solution 30 ML Cup PO ONE (10:57)
[2021-11-19] MEDS ORDERED: ceFAZolin 2 GM in Premix Bag 1 BAG IV ONE (10:57)
[2021-11-19] MEDS ORDERED: Sodium Chloride 0.9% 2.5 ML Syringe FLUSH PRN (10:57)
[2021-11-19] MEDS ORDERED: Sodium Chloride 0.9% 20 ML SDV IV PRN (10:57)
[2021-11-19] MEDS ORDERED: Sodium Chloride 0.9% 10 ML Syringe FLUSH PRN (10:57)
[2021-11-19] MEDS ORDERED: Oxytocin/0.9 % Sodium Chloride 30 UNIT/500 ML BAG IV SCH (11:00)
[2021-11-19] MEDS ORDERED: fentaNYL 100 MCG/2 ML SDV ONE (11:13)
[2021-11-19] MEDS ORDERED: Ondansetron 4 MG/2 ML SDV ONE (11:13)
[2021-11-19] MEDS ORDERED: Oxytocin 10 Units/1 ML SDV ONE ×2 (11:13→12:56)
[2021-11-19] MEDS ORDERED: Morphine PF 10 MG/10 ML SDV ONE (11:13)
[2021-11-19] MEDS ORDERED: Phenylephrine 1% 10 MG/ML SDV ONE (11:15)
[2021-11-19] MEDS ORDERED: Octyl 2-Cyanoacrylate 1 Tube ONE (13:11)
[2021-11-19] MEDS ORDERED: Lanolin 100% Cream 7 GM Tube TOP PRN (13:29)
[2021-11-19] MEDS ORDERED: Methylergonovine 0.2 MG/1 ML Amp IM PRN (13:29)
[2021-11-19] MEDS ORDERED: Ondansetron 4 MG/2 ML SDV IVPUSH PRN ×2 (13:29→13:41)
[2021-11-19] MEDS ORDERED: diphenhydrAMINE 50 MG/ML SDV IVPUSH PRN ×2 (13:29→13:41)
[2021-11-19] MEDS ORDERED: Bisacodyl 10 MG Supp RECTAL PRN (13:29)
[2021-11-19] MEDS ORDERED: Oxytocin 10 Units/1 ML SDV IM PRN (13:29)
[2021-11-19] MEDS ORDERED: Misoprostol 200 MCG Tab RECTAL PRN (13:29)
[2021-11-19] MEDS ORDERED: Tranexamic Acid 1,000 MG in Sodium Chloride 0.9% 100 ML IV PRN (13:29)
[2021-11-19] MEDS ORDERED: Acetaminophen/oxyCODONE 325-5 MG Tab PO PRN ×4 (13:29→13:42)
[2021-11-19] MEDS ORDERED: fentaNYL 100 MCG/2 ML SDV IVPUSH PRN (13:41)
[2021-11-19] MEDS: Ketorolac 30 MG/ML SDV IVPUSH SCH ×2 (19:32)
[2021-11-19] MEDS: Docusate Sodium 100 MG Cap PO SCH (21:55)
[2021-11-20] MEDS: Ketorolac 30 MG/ML SDV IVPUSH SCH ×3 (01:31→13:29)
[2021-11-20] MEDS: Prenatal Multivitamin with Calcium/Folic Acid/Iron Tab PO SCH (08:12)
[2021-11-20] MEDS: Docusate Sodium 100 MG Cap PO SCH ×2 (08:12→20:53)
[2021-11-20] MEDS: Ibuprofen 800 MG Tab PO PRN (20:53)
[2021-11-21] MEDS: Ibuprofen 800 MG Tab PO PRN (05:35)
[2021-11-21 08:15] VITALS: BP 102/60; PULSE 78
[2021-11-21] MEDS: Prenatal Multivitamin with Calcium/Folic Acid/Iron Tab PO SCH (10:13)
[2021-11-21] MEDS: Docusate Sodium 100 MG Cap PO SCH (10:14)
== END 2021-11-21 11:30 | disposition home or self-care (01) | DRG 540 ==
LOC: MW.OB 10:04
PROVIDERS: ADMIT Obstetrics & Gynecology; ATTEND Obstetrics & Gynecology
PROC: 10D00Z1 Extraction of Products of Conception, Low, Open Approach (ICD-10-PCS; principal; 2021-11-19)
DX: O34.211 Maternal care for low transverse scar from previous cesarean delivery (principal); Z37.0 Single live birth; O40.3XX0 Polyhydramnios, third trimester, not applicable or unspecified; O32.1XX0 Maternal care for breech presentation, not applicable or unspecified; Z3A.38 38 weeks gestation of pregnancy
CPT/HCPCS: 01961; 36415; 59025; 82803; 85014; 85018; 85027; 86592; 86850; 86900; 86901; A9270-GY; J0690; J1885; J2274; J2370; J2405; J2590; J3010; J7120

== ENCOUNTER 2022-04-02 19:05 | Emergency (ER) | payer BC, OTHER ==
[2022-04-02] MEDS ORDERED: Ondansetron 4 MG/2 ML SDV IVPUSH ONE (20:12)
[2022-04-02] MEDS ORDERED: Ketorolac 30 MG/ML SDV IVPUSH ONE (20:12)
[2022-04-02] MEDS ORDERED: Sodium Chloride 0.9% 1,000 ML IV ONE (20:12)
[2022-04-02] MEDS ORDERED: diphenhydrAMINE 50 MG/ML SDV IVPUSH ONE (20:13)
[2022-04-02] MEDS ORDERED: Metoclopramide 10 MG/2 ML SDV IV ONE (20:13)
[2022-04-03 03:09] VITALS: BP 105/66; PULSE 73
== END 2022-04-02 22:01 | disposition home or self-care (01) ==
LOC: MW.ED 19:05
DX: G43.909 Migraine, unspecified, not intractable, without status migrainosus (principal)
CPT/HCPCS: 70450; 96374; 96375; 99283; J1200; J1885; J2405; J2765; J7030

== ENCOUNTER 2024-04-15 22:45 | Emergency (ER) | payer BC, OTHER ==
[2024-04-15 23:09] LABS: BASOPHILS ABSOLUTE AUTO 0.07 K/uL (0.00-0.20); BASOPHILS PERCENT AUTO 1.1 % (0.0-1.0); EOSINOPHILS ABSOLUTE AUTO 0.14 K/uL (0.00-0.45); EOSINOPHILS PERCENT AUTO 2.3 % (0.0-6.0); HEMATOCRIT 36.2 % (37.0-47.0); HEMOGLOBIN 12.7 g/dL (12.0-16.0); IMMATURE GRAN ABSOLUTE AUTO 0.01 K/uL (0.00-0.05); IMMATURE GRAN PERCENT AUTO 0.2 % (0.0-0.4); LYMPHOCYTES ABSOLUTE AUTO 1.95 K/uL (1.00-4.80); LYMPHOCYTES PERCENT AUTO 31.5 % (24.0-44.0); MEAN CORPUSCULAR HEMOGLOBIN 31.3 pg (28.0-32.0); MEAN CORPUSCULAR HGB CONC 35.1 g/dL (32.0-36.0); MEAN CORPUSCULAR VOLUME 89.2 fL (83.0-99.0); MEAN PLATELET VOLUME 10.5 fL (9.4-12.3); MONOCYTES ABSOLUTE AUTO 0.44 K/uL (0.00-0.80); MONOCYTES PERCENT AUTO 7.1 % (0.0-8.0); NEUTROPHILS ABSOLUTE AUTO 3.59 K/uL (1.80-7.70); NEUTROPHILS PERCENT AUTO 57.8 % (41.0-71.0); PLATELET COUNT,PLT 171 K/uL (150-400); RED BLOOD CELL COUNT 4.06 M/uL (4.10-5.30)
[2024-04-15 23:14] LABS: APPEARANCE,URINE CLEAR; BILIRUBIN,URINE NEGATIVE (NEGATIVE); COLOR,URINE YELLOW; GLUCOSE,URINE NEGATIVE (NEGATIVE); KETONES,URINE NEGATIVE (NEGATIVE); LEUKOCYTE ESTERASE,URINE NEGATIVE (NEGATIVE); NITRITE,URINE NEGATIVE (NEGATIVE); OCCULT BLOOD,URINE NEGATIVE (NEGATIVE); PH,URINE 5.5 (5.0-8.0); PROTEIN,URINE NEGATIVE (NEGATIVE); UROBILINOGEN,URINE 0.2 EU/dL (<2.0)
[2024-04-15] MEDS: Sodium Chloride 0.9% 1,000 ML IV ONE (23:14)
[2024-04-15] MEDS: Sodium Chloride 0.9% 10 ML Syringe FLUSH PRN (23:14)
[2024-04-15] MEDS: Sodium Chloride 0.9% 2.5 ML Syringe FLUSH PRN (23:15)
[2024-04-15 23:37] LABS: A/G RATIO 1.6 (0.9-1.6); ALANINE AMINOTRANSFERASE,ALT 21 IU/L (14-63); ALBUMIN 3.8 g/dL (3.4-5.0); ALKALINE PHOSPHATASE 58 U/L (46-116); ASPARTATE AMNIOTRANSFERASE,AST 27 IU/L (15-37); BILIRUBIN TOTAL 0.6 mg/dL (0.2-1.0); BLOOD UREA NITROGEN,BUN 14 mg/dL (7.0-18.0); CARBON DIOXIDE,CO2 26.2 mmol/L (21.0-32.0); CHLORIDE,CL 105 mmol/L (98-107); CREATININE 0.9 mg/dL (0.6-1.0); EST CRCL DRUG DOSING (CG) 72.11 mL/min; GLUCOSE RANDOM 121 mg/dL (74-106); POTASSIUM,K 3.4 mmol/L (3.5-5.1); PROTEIN TOTAL,TP 6.2 g/dL (6.4-8.2); SODIUM,NA 141 mmol/L (136-145)
[2024-04-15 23:52] LABS: ESTIMATED GFR 91 mL/min (>60)
[2024-04-16 00:15] VITALS: BP 97/55; PULSE 67
== END 2024-04-16 00:14 | disposition home or self-care (01) ==
LOC: MW.ED 22:45
DX: R55 Syncope and collapse (principal); Z75.8 Other problems related to medical facilities and other health care
CPT/HCPCS: 36415; 80053; 81003; 81025; 84484; 85025; 93005; 96360; 99284; J3490; J7030